=== PATIENT | female | born 1985 | race Asian ===

== ENCOUNTER 2018-11-24 08:28 | Day surgery (SDC) | payer OTHER ==
[~2018-11-24] VITALS: Ht 172.7 cm; Wt 50.5 kg
[2018-11-24] VITALS (7 sets, daily range): BP systolic 103–115; BP diastolic 59–78; PULSE 55–65; TEMP 97.7–98.4
[2018-11-24] MEDS ORDERED: PROTONIX 40MG T40 MG PO (09:05)
[2018-11-24] MEDS ORDERED: CARAFATE 1GM1 G PO (09:06)
--- NOTE | 2018-11-24 10:15 | NUR ---
Pt to [facility] 8 via cart from [employer]. Pt drowsy, but awake. Pt ambulates to recliner with stand by assistance. Warm blanket provided. No visitors are here with pt at this time. Muffin and water given per pt request. Pt denies pain or nausea. Will continue to monitor. Call light within reach.
--- NOTE | 2018-11-24 10:30 | NUR ---
Pt continues to rest. Tolerating food and fluids without difficulties. Call light within reach.
--- NOTE | 2018-11-24 10:45 | NUR ---
Pt continues to rest. Denies needs. Call light within reach.
--- NOTE | 2018-11-24 11:00 | NUR ---
Pt dozing on and off. Denies needs. Call light within reach.
--- NOTE | 2018-11-24 11:30 | NUR ---
Pt continues to rest. Denies needs. Call light within reach.
--- NOTE | 2018-11-24 11:45 | NUR ---
Pt awake. Discharge instructions reviewed. Pt voices understanding. IV site discontinued with all parts intact. Pt up to dress. Call light within reach.
--- NOTE | 2018-11-24 12:04 | NUR ---
Pt escorted to Patient Entrance lobby. She is awaiting an uber for transportation home.
== END 2018-11-24 12:04 | disposition home or self-care (01) ==
LOC: SDCO 08:28
DX: K29.30 Chronic superficial gastritis without bleeding (principal); B96.81 Helicobacter pylori [H. pylori] as the cause of diseases classified elsewhere; Z88.0 Allergy status to penicillin; Z85.828 Personal history of other malignant neoplasm of skin
CPT/HCPCS: J2250; J3010; J7030

== ENCOUNTER → 2018-12-05 | Outpatient (CLI) | payer OTHER ==
[~2018-12-05] MED LIST: CARAFATE 1GM1 G PO; PROTONIX 40MG T40 MG PO
== END ==
LOC: COL.RAD 09:41
DX: R10.11 Right upper quadrant pain (principal); M54.9 Dorsalgia, unspecified; R53.83 Other fatigue

== ENCOUNTER → 2019-03-12 | Outpatient (CLI) | payer OTHER | LOC: COL.RAD 09:37 | DX: K29.70 Gastritis, unspecified, without bleeding (principal); K59.00 Constipation, unspecified; Z86.19 Personal history of other infectious and parasitic diseases | CPT/HCPCS: A9537 ==